=== PATIENT | female | born 1950 | race Caucasian/White ===

== ENCOUNTER 2020-10-27 08:55 | Day surgery (SDC) | payer OTHER ==
[2020-10-23 14:37] VITALS: BMI 28.8
[2020-10-27] MEDS ORDERED: ACETAMINOPHEN 325 MG TABLET (FP) PO PRN (10:40)
[2020-10-27] MEDS ORDERED: KETOROLAC TROMETHAMINE 0.5% EYE DROP 1 DROP DROPS ONE (11:10)
[2020-10-27] MEDS ORDERED: OFLOXACIN 0.3% OPHTHALMIC SOLUTION 5 ML BOTTLE ONE (11:10)
[2020-10-27] MEDS ORDERED: TROPICAMIDE 1% OPHTH SOLN 15 ML BOTTLE ONE (11:10)
[2020-10-27] MEDS ORDERED: CYCLOPENTOLATE HCL 1% OPHTH SOLN 2 ML BOTTLE ONE (11:10)
[2020-10-27] MEDS ORDERED: PHENYLEPHRINE 2.5% OPHTH SOLN 15 ML BOTTLE ONE (11:10)
[2020-10-27] MEDS: TROPICAMIDE 1% OPHTH SOLN 15 ML BOTTLE OD SCH ×5 (11:20→11:40)
[2020-10-27] MEDS: CYCLOPENTOLATE HCL 1% OPHTH SOLN 2 ML BOTTLE OD SCH ×5 (11:20→11:40)
[2020-10-27] MEDS: KETOROLAC TROMETHAMINE 0.5% EYE DROP 1 DROP DROPS OD SCH ×5 (11:20→11:40)
[2020-10-27] MEDS: PHENYLEPHRINE 2.5% OPHTH SOLN 15 ML BOTTLE OD SCH ×5 (11:20→11:40)
[2020-10-27] MEDS: OFLOXACIN 0.3% OPHTHALMIC SOLUTION 5 ML BOTTLE OD SCH ×5 (11:20→11:40)
[2020-10-27] MEDS ORDERED: BACITRACIN/POLYMYXIN OPH OINT 3.5 GM TUBE ONE (11:24)
[2020-10-27] MEDS ORDERED: BETAXOLOL HCL 0.25% OPHTHALMIC 10 ML DROPSBTL ONE (11:24)
[2020-10-27] MEDS ORDERED: EPI-SHUGARCAINE (EPINEPHRINE 0.025% & LIDOCAINE-PF 0.75%) 4ML ONE (11:25)
[2020-10-27] MEDS ORDERED: POVIDONE-IODINE 5% OPHTHALMIC PREP 30 ML SOLUTION ONE (11:25)
[2020-10-27] MEDS ORDERED: NEO/POLYMYX B SULF/DEXAMETH OPHTHALMIC 5ML BOTTLE ONE (11:25)
[2020-10-27] MEDS ORDERED: ACETYLCHOLINE 1:100 INTRA-OCUL 20 MG/2 ML KIT ONE (11:25)
[2020-10-27] MEDS ORDERED: TETRACAINE 0.5% OPHTH SOLN 2 ML BOTTLE ONE (11:25)
[2020-10-27] MEDS ORDERED: MIDAZOLAM HCL 2 MG/2 ML SINGLE DOSE VIAL ONE (11:53)
[2020-10-27 12:50] VITALS: TEMP 97.8
[2020-10-27 14:23] VITALS: BP 128/74; PULSE 69
== END 2020-10-27 13:35 | disposition home or self-care (01) ==
LOC: FASU 08:55
PROVIDERS: ATTEND Ophthalmology
PROC: 08RJ3JZ Replacement of Right Lens with Synthetic Substitute, Percutaneous Approach (ICD-10-PCS; principal; 2020-10-27 12:08)
DX: H26.8 Other specified cataract (principal)

== ENCOUNTER 2020-11-10 08:26 | Day surgery (SDC) | payer OTHER ==
[2020-11-06 10:37] VITALS: BMI 28.8
[2020-11-10] MEDS ORDERED: TROPICAMIDE 1% OPHTH SOLN 15 ML BOTTLE ONE (11:35)
[2020-11-10] MEDS ORDERED: OFLOXACIN 0.3% OPHTHALMIC SOLUTION 5 ML BOTTLE ONE (11:35)
[2020-11-10] MEDS ORDERED: KETOROLAC TROMETHAMINE 0.5% EYE DROP 1 DROP DROPS ONE (11:35)
[2020-11-10] MEDS ORDERED: PHENYLEPHRINE 2.5% OPHTH SOLN 15 ML BOTTLE ONE (11:35)
[2020-11-10] MEDS ORDERED: CYCLOPENTOLATE HCL 1% OPHTH SOLN 2 ML BOTTLE ONE (11:35)
[2020-11-10] MEDS ORDERED: BACITRACIN/POLYMYXIN OPH OINT 3.5 GM TUBE ONE (12:01)
[2020-11-10] MEDS ORDERED: TETRACAINE 0.5% OPHTH SOLN 2 ML BOTTLE ONE (12:02)
[2020-11-10] MEDS ORDERED: EPI-SHUGARCAINE (EPINEPHRINE 0.025% & LIDOCAINE-PF 0.75%) 4ML ONE (12:02)
[2020-11-10] MEDS ORDERED: BETAXOLOL HCL 0.25% OPHTHALMIC 10 ML DROPSBTL ONE (12:02)
[2020-11-10] MEDS ORDERED: POVIDONE-IODINE 5% OPHTHALMIC PREP 30 ML SOLUTION ONE (12:02)
[2020-11-10] MEDS ORDERED: NEO/POLYMYX B SULF/DEXAMETH OPHTHALMIC 5ML BOTTLE ONE (12:02)
[2020-11-10] MEDS: PHENYLEPHRINE 2.5% OPHTH SOLN 15 ML BOTTLE OS SCH ×5 (12:05→12:25)
[2020-11-10] MEDS: TROPICAMIDE 1% OPHTH SOLN 15 ML BOTTLE OS SCH ×5 (12:05→12:25)
[2020-11-10] MEDS: CYCLOPENTOLATE HCL 1% OPHTH SOLN 2 ML BOTTLE OS SCH ×5 (12:05→12:25)
[2020-11-10] MEDS: KETOROLAC TROMETHAMINE 0.5% EYE DROP 1 DROP DROPS OS SCH ×5 (12:05→12:25)
[2020-11-10] MEDS: OFLOXACIN 0.3% OPHTHALMIC SOLUTION 5 ML BOTTLE OS SCH ×5 (12:05→12:25)
[2020-11-10] MEDS ORDERED: MIDAZOLAM HCL 2 MG/2 ML SINGLE DOSE VIAL ONE ×2 (13:03→13:16)
[2020-11-10] MEDS ORDERED: KETOROLAC TROMETHAMINE 30 MG/1 ML VIAL ONE (13:16)
[2020-11-10] MEDS ORDERED: ACETAMINOPHEN 325 MG TABLET (FP) PO PRN (14:00)
[2020-11-10 14:54] VITALS: TEMP 97.8
[2020-11-10 14:58] VITALS: BP 142/83; PULSE 66
== END 2020-11-10 14:55 | disposition home or self-care (01) ==
LOC: FASU 08:26
PROVIDERS: ATTEND Ophthalmology
PROC: 08RK3JZ Replacement of Left Lens with Synthetic Substitute, Percutaneous Approach (ICD-10-PCS; principal; 2020-11-10 13:39)
DX: H26.9 Unspecified cataract (principal)